=== PATIENT | male | born 1960 | race Caucasian/White ===

== ENCOUNTER 2018-02-05 03:08 | Inpatient (IN) | payer OTHER ==
[2018-02-05] MEDS ORDERED: ONDANSETRON 4 MG INJ IV ×3 (04:00→16:00)
[2018-02-05] MEDS ORDERED: morphine 2 MG INJ IV (04:00)
[2018-02-05] MEDS ORDERED: ACETAMINOPHEN 325 MG TAB PO ×2 (04:00→16:00)
[2018-02-05] MEDS ORDERED: NACL 0.9% 3 ML SYG IV (04:00)
[2018-02-05] MEDS: SOD CHLORIDE 0.9% 1,000 ML IV ×2 (04:33→18:05)
[2018-02-05] MEDS: PIPER-TAZO 3.375 GM IV (PMX) 100 ML IVPB ×3 (05:07→18:28)
[2018-02-05 05:53] LABS: ADD MAN DIFF? NO
[2018-02-05 05:57] LABS: ABNORMAL IP MESSAGE 1; BASOPHILS % 0.3 % (0.0-2.0); EOSINOPHILS # 0.1 10^3/ul (0.0-0.5); EOSINOPHILS % 0.6 % (0.0-7.0); HEMATOCRIT 28.7 % (42.0-52.0); HEMOGLOBIN 9.9 g/dl (14.0-18.0); LYMPHOCYTES # 5.7 10^3/ul (0.8-2.9); LYMPHOCYTES % 46.7 % (15.0-51.0); MEAN CORPUSCULAR HEMOGLOBIN 35.4 pg (29.0-33.0); MEAN CORPUSCULAR HGB CONC 34.5 g/dl (32.0-37.0); MEAN CORPUSCULAR VOLUME 102.5 fl (82.0-101.0); MEAN PLATELET VOLUME 9.6 fl (7.4-10.4); MONOCYTES % 8.1 % (0.0-11.0); NEUTROPHIL # 5.4 10^3/ul (1.6-7.5); PLATELET COUNT 207 10^3/UL (140-415); POSITIVE DIFF @See below; RED CELL DISTRIBUTION WIDTH 12.2 % (11.5-14.5)
[2018-02-05 05:57] LABS: WHITE BLOOD COUNT 12.3 10^3/ul (4.8-10.8)
[2018-02-05 06:22] LABS: ALANINE AMINOTRANSFERASE 29 IU/L (13-69); ALBUMIN/GLOBULIN RATIO 1.03; ALKALINE PHOSPHATASE 98 IU/L (42-121); ANION GAP 13 (8-16); ASPARTATE AMINO TRANSFERASE 12 IU/L (15-46); BILIRUBIN,INDIRECT 0.7 mg/dl (0-1.1); BILIRUBIN,TOTAL 0.7 mg/dl (0.2-1.3); BLOOD UREA NITROGEN 12 mg/dl (7-20); CALCIUM 8.3 mg/dl (8.4-10.2); CARBON DIOXIDE 23 mmol/L (21-31); CHLORIDE 112 mmol/L (97-110); CHOL/HDL RATIO 4.4 RATIO; CHOLESTEROL 94 mg/dl (100-200); CREATININE 0.74 mg/dl (0.61-1.24); GAMMA GLUTAMYL TRANSPEPTIDASE 69 IU/L (0-50); GLUCOSE 82 mg/dl (70-220); HDL CHOLESTEROL 21 mg/dl (28-71); LDL CHOLESTEROL,CALCULATED 50 mg/dl; MAGNESIUM 1.7 mg/dl (1.7-2.5); POTASSIUM 3.5 mmol/L (3.5-5.1); SODIUM 144 mmol/L (135-144); TOTAL PROTEIN 5.9 g/dl (6.1-8.1); TRIGLYCERIDES 117 mg/dl (0-149)
[2018-02-05] MEDS ORDERED: ROPIVACAINE 0.5 % 30 ML VIAL (15:23)
[2018-02-05] MEDS ORDERED: MIDAZOLAM 1 MG/ML 2 ML INJ (15:23)
[2018-02-05] MEDS ORDERED: PROPOFOL 20 ML (15:23)
[2018-02-05] MEDS ORDERED: ROCURONIUM 50 MG INJ (15:23)
[2018-02-05] MEDS ORDERED: ENOXAPARIN 40 MG/0.4 ML SYG SC (15:41)
[2018-02-05] MEDS: LIDOCAINE 1% (MPF) 30 ML INJ (15:44)
[2018-02-05] MEDS ORDERED: METOCLOPRAMIDE 10 MG INJ (15:57)
[2018-02-05] MEDS ORDERED: ONDANSETRON 4 MG INJ (15:57)
[2018-02-05] MEDS ORDERED: KETOROLAC 30 MG INJ (15:57)
[2018-02-05] MEDS ORDERED: SUGAMMADEX SODIUM 200 MG/2 ML VIAL IV (15:57)
[2018-02-05] MEDS ORDERED: DEXAMETHASONE 4 MG/ML 1 ML INJ (15:57)
[2018-02-05] MEDS ORDERED: hydrALAzine 20 MG INJ IV (16:00)
[2018-02-05] MEDS ORDERED: EPHEDrine SULFATE 50 MG/5 ML SYG IV (16:00)
[2018-02-05] MEDS ORDERED: FENTAnyl 50 MCG/ML VIAL IV ×3 (16:00)
[2018-02-05] MEDS ORDERED: HYDROmorphONE (0.2 MG/ML) 10ML SYG IV ×2 (16:00)
[2018-02-05] MEDS ORDERED: OXYCODONE/ACETAMINOPHEN (5/325) TAB PO (16:00)
[2018-02-05] MEDS ORDERED: IBUPROFEN 600 MG TAB PO (16:00)
[2018-02-05] MEDS ORDERED: HYDROmorphONE 0.5 MG/0.5 ML SYG IV (16:00)
[2018-02-05] MEDS ORDERED: DIPHENHYDRAMINE 50 MG INJ IV (16:00)
[2018-02-05] MEDS ORDERED: LABETALOL HCL 20MG INJ IV (16:00)
[2018-02-05] MEDS ORDERED: METOCLOPRAMIDE 10 MG INJ IV (16:00)
[2018-02-05] MEDS: MEPERIDINE 25 MG INJ IV (16:43)
[2018-02-05] MEDS: HYDROmorphONE (0.2 MG/ML) 10ML SYG IV ×3 (16:53→17:19)
[2018-02-05] MEDS ORDERED: PIPER-TAZO 3.375 GM IV (PMX) 100 ML IVPB (18:00)
[2018-02-05] MEDS: GABAPENTIN 300 MG CAP PO (21:00)
[2018-02-05] MEDS ORDERED: HYDROmorphONE 0.5 MG/0.5 ML SYG (21:24)
[2018-02-05] MEDS: HYDROmorphONE 0.5 MG/0.5 ML SYG IV (21:28)
[2018-02-05] MEDS: D5-NS + KCL 20 MEQ 1,000 ML IV (21:28)
[2018-02-06] MEDS: PIPER-TAZO 3.375 GM IV (PMX) 100 ML IVPB ×3 (01:05→11:26)
[2018-02-06] MEDS: HYDROmorphONE 0.5 MG/0.5 ML SYG IV (01:36)
[2018-02-06] MEDS: D5-NS + KCL 20 MEQ 1,000 ML IV ×2 (03:00→10:12)
[2018-02-06] MEDS: CYCLOBENZAPRINE 10 MG TAB PO ×2 (06:00→06:06)
[2018-02-06] MEDS: morphine LIQ (10 MG/5 ML) CUP PO ×2 (06:00→11:26)
[2018-02-06 06:49] LABS: ADD MAN DIFF? NO
[2018-02-06 06:52] LABS: BASOPHILS % 0.1 % (0.0-2.0); EOSINOPHILS % 0.1 % (0.0-7.0); HEMATOCRIT 25.9 % (42.0-52.0); HEMOGLOBIN 9.1 g/dl (14.0-18.0); LYMPHOCYTES # 3.4 10^3/ul (0.8-2.9); LYMPHOCYTES % 23.9 % (15.0-51.0); MEAN CORPUSCULAR HEMOGLOBIN 35.5 pg (29.0-33.0); MEAN CORPUSCULAR HGB CONC 35.1 g/dl (32.0-37.0); MEAN CORPUSCULAR VOLUME 101.2 fl (82.0-101.0); MEAN PLATELET VOLUME 9.6 fl (7.4-10.4); MONOCYTE # 1.2 10^3/ul (0.3-0.9); MONOCYTES % 8.4 % (0.0-11.0); NEUTROPHIL # 9.6 10^3/ul (1.6-7.5); NEUTROPHILS % 67.1 % (39.0-77.0); PLATELET COUNT 225 10^3/UL (140-415); RED BLOOD COUNT 2.56 10^6/ul (4.70-6.10); RED CELL DISTRIBUTION WIDTH 12.1 % (11.5-14.5)
[2018-02-06 06:52] LABS: WHITE BLOOD COUNT 14.3 10^3/ul (4.8-10.8)
[2018-02-06 07:11] LABS: MAGNESIUM 1.7 mg/dl (1.7-2.5)
[2018-02-06 07:11] LABS: PHOSPHORUS 2.8 mg/dl (2.5-4.9)
[2018-02-06 07:23] LABS: ALANINE AMINOTRANSFERASE 48 IU/L (13-69); ALBUMIN 2.9 g/dl (3.3-4.9); ALBUMIN/GLOBULIN RATIO 1.03; ALKALINE PHOSPHATASE 99 IU/L (42-121); ANION GAP 11 (8-16); ASPARTATE AMINO TRANSFERASE 36 IU/L (15-46); BILIRUBIN,INDIRECT 0.5 mg/dl (0-1.1); BILIRUBIN,TOTAL 0.5 mg/dl (0.2-1.3); BLOOD UREA NITROGEN 8 mg/dl (7-20); CALCIUM 8.2 mg/dl (8.4-10.2); CARBON DIOXIDE 26 mmol/L (21-31); CHLORIDE 110 mmol/L (97-110); GLUCOSE 126 mg/dl (70-220); POTASSIUM 4.1 mmol/L (3.5-5.1); SODIUM 143 mmol/L (135-144); TOTAL PROTEIN 5.7 g/dl (6.1-8.1)
[2018-02-06] MEDS: GABAPENTIN 300 MG CAP PO (08:01)
[2018-02-06] MEDS: ENOXAPARIN 40 MG/0.4 ML SYG SC (08:03)
[2018-02-06] MEDS: HYDROCODONE/APAP (10/325) TAB PO (09:38)
== END 2018-02-06 15:19 | disposition home or self-care (01) | DRG 419 ==
LOC: MS3 03:08 → PP2 16:57
PROC: 0FT44ZZ Resection of Gallbladder, Percutaneous Endoscopic Approach (ICD-10-PCS; principal; 2018-02-05 15:27)
DX: K81.0 Acute cholecystitis (principal); D64.9 Anemia, unspecified; G89.29 Other chronic pain; M54.9 Dorsalgia, unspecified; F17.200 Nicotine dependence, unspecified, uncomplicated
CPT/HCPCS: 76705; 80053; 80061; 82977; 83036; 83735; 84100; 84443; 85025; 88304